=== PATIENT | female | born 1970 | race Caucasian/White ===

== ENCOUNTER 2016-12-11 06:13 | Inpatient (IN) | payer OTHER ==
[~2016-12-11] VITALS: Ht 165.1 cm; Wt 98.0 kg
[~2016-12-11 06:13] MED LIST: CYAN1KIT2 IM; FERR325C IV; SITA50TA PO
[2016-12-11] MEDS ORDERED: POVIDONE IODINE 5% (ANTISEPSIS KIT) 4 APPLICATIONS EACH NARE PRN (06:45)
[2016-12-11] MEDS ORDERED: DEXT 5%-NACL 0.9% 1000 ML INJ 1,000 ML IV SCH (06:45)
[2016-12-11] MEDS ORDERED: ceFAZolin 2 GM PREMIX 50 ML IV SCH (06:45)
[2016-12-11] MEDS ORDERED: INSULIN HUMAN REGULAR 1,000 UNITS/10 ML VIAL SQ PRN (06:45)
[2016-12-11] MEDS ORDERED: SODIUM CHLORID 0.9% 500 ML IV PRN (06:45)
[2016-12-11] MEDS ORDERED: LACTATED RINGER'S 1000 ML IV PRN (06:45)
[2016-12-11] MEDS ORDERED: METOPROLOL TARTRATE 25 MG TAB PO PRN (06:45)
[2016-12-11] MEDS ORDERED: CHLORHEXIDINE GLUCONATE 2 % 1 PACK (2 CLOTHS) TOPICAL PRN (06:45)
[2016-12-11] MEDS ORDERED: SUGAMMADEX SODIUM 200 MG/2 ML VIAL IV PUSH ONE (06:47)
[2016-12-11] MEDS ORDERED: HYDROmorphone HCL PF 2 MG/ML VIAL ONE (06:47)
[2016-12-11 07:20] LABS: AUTOMATED NEUTROPHIL # 3.5 TH/MM3 (1.8-7.7); BASOPHIL % 0.4 % (0.0-2.0); EOSINOPHIL % 0.6 % (0.0-4.0); HEMATOCRIT 40.5 % (35.0-46.0); LYMPH % 28.5 % (9.0-44.0); LYMPHOCYTE # 1.6 TH/MM3 (1.0-4.8); MEAN CELL VOLUME 78.9 FL (80.0-100.0); MEAN CORPUSCULAR HEMOGLOBIN 25.4 PG (27.0-34.0); MEAN CORPUSCULAR HGB CONC 32.2 % (32.0-36.0); MEAN PLATELET VOLUME 9.7 FL (7.0-11.0); MONO % 9.6 % (0.0-8.0); MONOCYTE # 0.5 TH/MM3 (0-0.9); NEUT % 60.9 % (16.0-70.0); PLATELET COUNT 207 TH/MM3 (150-450); RED BLOOD COUNT 5.13 MIL/MM3 (4.00-5.30); RED CELL DISTRIBUTION WIDTH 21.2 % (11.6-17.2); WHITE BLOOD COUNT 5.7 TH/MM3 (4.0-11.0)
[2016-12-11] MEDS ORDERED: ACETAMINOPHEN 1000 MG/100 ML 100 ML IV ONE (08:07)
[2016-12-11] MEDS ORDERED: NALOXONE HCL 0.4 MG/ML AMP ONE (08:10)
[2016-12-11] MEDS ORDERED: metroNIDAZOLE 500 MG INJ 100 ML IV ONE (08:29)
[2016-12-11] MEDS ORDERED: ceFAZolin INJ 1,000 MG VIAL ONE (13:17)
[2016-12-11] MEDS ORDERED: DO NOT ADM ANY ANTICOAGULANT DRUGS PRN (14:27)
[2016-12-11] MEDS ORDERED: ENALAPRILAT 1.25 MG/ML VIAL IV PUSH PRN (14:30)
[2016-12-11] MEDS ORDERED: POTASSIUM CHLOR 20 MEQ PREMIX 100 ML IV PRN (14:30)
[2016-12-11] MEDS ORDERED: ACETAMINOPHEN 325 MG TAB PO PRN (14:30)
[2016-12-11] MEDS ORDERED: POTASSIUM CHLOR 40 MEQ PREMIX 100 ML IV PRN (14:30)
[2016-12-11] MEDS ORDERED: NALOXONE HCL 0.4 MG/ML AMP IV PUSH PRN (14:30)
[2016-12-11] MEDS ORDERED: Post-op Orders (for Pharmacy) MISC XX ONE (14:30)
[2016-12-11] MEDS ORDERED: SODIUM CHLORIDE 0.9% FLUSH 5 ML FLUSH IVF PRN (14:30)
[2016-12-11] MEDS ORDERED: ACETAMINOPHEN/HYDROcodone 325 MG/5 MG TAB PO PRN (14:30)
[2016-12-11] MEDS: SODIUM CHLORIDE 0.9% FLUSH 5 ML FLUSH IVF SCH ×2 (14:30→19:32)
[2016-12-11] MEDS ORDERED: BENZOCAINE 6 MG/MENTHOL 10 MG LOZENGE BUCCAL PRN (14:30)
[2016-12-11] MEDS ORDERED: ENALAPRILAT 2.5 MG/2 ML VIAL IV PUSH PRN (14:30)
[2016-12-11] MEDS ORDERED: diphenhydrAMINE HCL 50 MG/ML VIAL IV PUSH PRN (14:30)
[2016-12-11] MEDS ORDERED: MORPHINE SULFATE 30 MG/30 ML PCA IV SCH (14:30)
[2016-12-11] MEDS: D5-NS + KCL 20 MEQ INJ 1,000 ML IV SCH ×2 (15:30→23:17)
[2016-12-11 15:39] LABS: AUTOMATED NEUTROPHIL # 12.3 TH/MM3 (1.8-7.7); BASOPHIL % 0.2 % (0.0-2.0); HEMATOCRIT 39.4 % (35.0-46.0); HEMOGLOBIN 12.6 GM/DL (11.6-15.3); LYMPHOCYTE # 0.8 TH/MM3 (1.0-4.8); MEAN CELL VOLUME 79.2 FL (80.0-100.0); MEAN CORPUSCULAR HEMOGLOBIN 25.4 PG (27.0-34.0); MEAN CORPUSCULAR HGB CONC 32.1 % (32.0-36.0); MEAN PLATELET VOLUME 9.7 FL (7.0-11.0); MONO % 1.9 % (0.0-8.0); MONOCYTE # 0.3 TH/MM3 (0-0.9); NEUT % 91.9 % (16.0-70.0); PLATELET COUNT 197 TH/MM3 (150-450); RED BLOOD COUNT 4.97 MIL/MM3 (4.00-5.30); WHITE BLOOD COUNT 13.4 TH/MM3 (4.0-11.0)
[2016-12-11 16:02] LABS: BICARBONATE 20.9 MEQ/L (21.0-32.0); CALCIUM 8.8 MG/DL (8.5-10.1); CREATININE 1.08 MG/DL (0.50-1.00)
[2016-12-11] MEDS: KETOROLAC TROMETHAMINE 30 MG/ML (IVP) VIAL IVP SCH ×2 (16:24→23:17)
[2016-12-11] MEDS ORDERED: *morphine SULFATE 8 MG/ML PERIprocedure ONLY ONE (16:58)
[2016-12-11] MEDS: metroNIDAZOLE 500 MG INJ 100 ML IV SCH (17:15)
[2016-12-11] MEDS: ONDANSETRON HCL 4 MG/2 ML VIAL IV PUSH PRN (19:38)
[2016-12-11 21:00] VITALS: PULSE 88
[2016-12-11] MEDS ORDERED: HEPARIN SODIUM - SQ 10,000 UNITS/ML VIAL SQ SCH (21:00)
--- NOTE | 2016-12-11 21:07 | MP ---
cc: BUCK GIBSON M.D. DATE OF SURGERY 12/11/16 PREOPERATIVE DIAGNOSIS Ascending colon polyp. POSTOPERATIVE DIAGNOSIS Ascending colon polyp. PROCEDURE 1. Robotic extensive lysis of adhesions. 2. Robotic ascending colectomy. SURGEON Jhonathan Gibson MD [employer] Reinaldo ANESTHESIA General per ET tube ESTIMATED BLOOD LOSS 100 mL OPERATIVE INDICATIONS The patient is a 46-year-old female who on recent colonoscopy was noted to have a large polyp in the ascending colon which was not able to be removed via the colonoscope. OPERATIVE FINDINGS The patient had no visible abnormalities noted within the liver. The gallbladder was absent. The tattooing of the polyp were found just at the level of the hepatic flexure. The uterus was somewhat enlarged but smooth and symmetric looking. The left ovary was not visualized. The right ovary was and it appeared normal. PROCEDURE IN DETAIL The patient was brought to the operating room and placed in the supine position. The bed was broken slightly. The skin of the anterior abdominal wall was then prepped and draped in usual sterile fashion. Site was then chosen for the camera port being located just to the left and below the umbilicus. A 10-12 port was placed at that location under direct vision using a laparoscope. CO2 insufflation was then undertaken and a brief abdominal survey was then performed with nothing noted that would preclude the robotic approach. The patient was then hydroplaned just slightly head down and to the left and the small bowel. The remainder of the ports were then placed as follows: the #1 port was placed in the left mid clavicular line just under the left costal margin and the #5 assist port was placed in the left lower quadrant equal distance between the #1 port and the camera port. The #2 port was placed just to the right of the suprapubic area and the #3 10-12 port was placed just inside the right anterior iliac spine. The small bowel was then brought up and out of the pelvis and lay fairly well in the upper abdomen. Robot was then docked. The terminal ileum and cecum were then retracted anteriorly and the peritoneum was scored. Dissection was continued in the posterior plane freeing the ascending colon from the posterior peritoneum using electrocautery dissection. This dissection was carried out to the level of the C sweep of the duodenum which was carefully dissected free from the undersurface of the transverse mesocolon. Dissection continued in this plane until the C sweep of the duodenum and the pancreas were dissected free from the undersurface of the transverse mesocolon and dissection continued laterally to as far as we could get to get good retraction. The colon was then reversed back into its more normal orientation and the cecum and terminal ileum were retracted down and to the right thus putting the ileocolic vessels on stretch. A window was made posterior to these and the vessels were then dissected out circumferentially. The vein was approached first. It was doubly clamped proximally, singly clamped distally using hemolock clamps and divided. The artery was then divided in the same fashion. The omentum was then pulled away from the transverse colon and, using electrocautery, dissection was carried in this plane until the lesser sac was entered. The omentum was freed of the colon from almost the splenic flexure to about midway between the midline and the hepatic flexure. At that point, I elected take that amount of the omentum with as it could conceivably be cancer. The transverse colon was then retracted anteriorly and a site was chosen for a window just to the right of the middle colic vessels. This was opened using electrocautery and the mesentery at this level was divided using the vessel sealer. The lateral peritoneal attachments of the ascending colon were then dissected free using electrocautery and continued up and around the hepatic flexure. The remaining mesentery to the hepatic flexure and descending colon was then divided using the vessel sealer. A site was then chosen for division of the transverse colon just to the right of the middle colic vessels and this was cleared circumferentially. A site was also chosen for division of the small bowel where it came up nicely and lay in a nice orientation for anastomosis. This was approximately 12 cm proximal to the ileocecal valve. The mesentery at this level was divided using the vessel sealer. The small bowel was then aligned against the transverse colon for reanastomosis and three simple stay sutures were placed using 2-0 silk suture, one posterior, one anterior at the site of the anastomosis and one approximately 6 cm distally. An enterotomy was made in the small bowel and the colon just proximal to the sutures and the echelon endostapler was brought onto the field. This was placed with one limb of the stapler going down each limb of the bowel. This was closed along the antimesenteric border, held for 30 seconds, fired and removed. The anastomosis appeared pink and healthy. The reload of the stapler was then brought onto the field, placed transversely proximal to the main part of the anastomosis but distal to the previous enterotomies. This was closed, held for 30 seconds, fired and removed. The third load of the stapler was necessary to transect the remaining colon. The specimen was then placed into an EndoCatch bag. Hemostasis was obtained with electrocautery. The Evoseal product was then gently sprayed across the anastomosis and the anastomosis was wrapped in omentum. The peritoneal cavity was irrigated with warm normal saline and the robot was undocked. An 8-10 cm incision was made in the suprapubic area. Using electrocautery dissection, it was carried down to the fascia of the anterior abdominal wall which was split the length of skin incision. The medial fibers of the rectus abdominis muscle were then split and we were low as there not much peritoneum. There was not any posterior fascia, but the peritoneum was then opened using electrocautery as well. The specimen was then removed from the peritoneal cavity within the EndoCatch bag and taken to a back table where it was opened and a polyp was confirmed. The posterior fascia at the suprapubic site was closed in a running fashion using #1 PDS and the anterior fascia was closed in a running fashion using #1 PDS. The suprapubic incision was then copiously irrigated with warm normal saline and the skin was closed in a running subcuticular fashion using 3-0 Vicryl. The CO2 insufflation was resumed and no sign of any significant bleeding was noted. The 10-12 trocar sites at the umbilicus and the right lower quadrant were then closed using the crossbow device and 0 PDS suture. The trocar site wounds were then copiously irrigated with warm normal saline and closed in an interrupted septic fashion using 3-0 Vicryl. Sterile dressing was then applied. All sponge, needle and instrument counts were correct and the patient was returned to the Post Anesthesia Care Unit in stable condition. MD RIGOBERTO Day/ /2:17 PM /8:38 PM
[2016-12-11 21:24] VITALS: BP 104/63; PULSE 88; RESP 18; TEMP 98.7; O2SAT 98
[2016-12-11 22:00] VITALS: PULSE 84
[2016-12-11 23:00] VITALS: PULSE 88
[2016-12-11 23:07] VITALS: BP 106/58; PULSE 92; RESP 18; TEMP 97.9; O2SAT 93
[2016-12-12] VITALS (22 sets, daily range): BP systolic 89–127; BP diastolic 51–77; PULSE 67–86; RESP 16–19; TEMP 97.5–98.8; O2SAT 93–100
[2016-12-12] MEDS: metroNIDAZOLE 500 MG INJ 100 ML IV SCH ×2 (00:17→09:15)
[2016-12-12] MEDS: KETOROLAC TROMETHAMINE 30 MG/ML (IVP) VIAL IVP SCH ×4 (04:28→23:06)
[2016-12-12] MEDS: PCA - TOTAL MG MORPHINE DELIVERED PER SHIFT SCH ×3 (04:31→22:00)
[2016-12-12 04:55] LABS: AUTOMATED NEUTROPHIL # 7.9 TH/MM3 (1.8-7.7); HEMATOCRIT 34.6 % (35.0-46.0); HEMOGLOBIN 11.2 GM/DL (11.6-15.3); LYMPH % 5.8 % (9.0-44.0); LYMPHOCYTE # 0.5 TH/MM3 (1.0-4.8); MEAN CELL VOLUME 79.3 FL (80.0-100.0); MEAN CORPUSCULAR HEMOGLOBIN 25.6 PG (27.0-34.0); MEAN CORPUSCULAR HGB CONC 32.3 % (32.0-36.0); MEAN PLATELET VOLUME 9.5 FL (7.0-11.0); MONOCYTE # 0.5 TH/MM3 (0-0.9); NEUT % 88.2 % (16.0-70.0); PLATELET COUNT 180 TH/MM3 (150-450); RED BLOOD COUNT 4.36 MIL/MM3 (4.00-5.30); WHITE BLOOD COUNT 8.9 TH/MM3 (4.0-11.0)
[2016-12-12 05:26] LABS: BICARBONATE 20.5 MEQ/L (21.0-32.0); CALCIUM 8.9 MG/DL (8.5-10.1); CREATININE 0.69 MG/DL (0.50-1.00)
[2016-12-12] MEDS: D5-NS + KCL 20 MEQ INJ 1,000 ML IV SCH ×3 (07:05→18:04)
[2016-12-12] MEDS: SODIUM CHLORIDE 0.9% FLUSH 5 ML FLUSH IVF SCH ×2 (09:00→21:00)
[2016-12-12] MEDS: PANTOPRAZOLE SODIUM 40 MG VIAL IVP SCH (09:17)
--- NOTE | 2016-12-12 13:27 | HHI.PR ---
Subjective Remarks POD#1 s/p robotic ascending colectomy sore, no nausea Objective Vital Signs Date Time Temp Pulse Resp B/P (MAP) Pulse Ox O2 Delivery O2 Flow Rate FiO2 12/12/16 13:00 78 12/12/16 12:09 18 12/12/16 12:00 77 12/12/16 11:00 98.1 76 19 115/63 (80) 99 12/12/16 11:00 74 12/12/16 10:00 76 12/12/16 09:00 71 12/12/16 08:00 71 12/12/16 07:15 82 12/12/16 07:00 98.4 75 17 89/51 (64) 97 12/12/16 07:00 97 Nasal Cannula 2.00 12/12/16 06:13 74 12/12/16 05:44 95 12/12/16 05:04 71 12/12/16 04:31 18 12/12/16 04:04 82 12/12/16 03:29 98.8 83 18 95/56 (69) 95 12/12/16 03:00 82 12/12/16 02:04 80 12/12/16 01:01 83 12/12/16 00:27 82 12/11/16 23:07 97.9 92 18 106/58 (74) 93 12/11/16 23:00 88 12/11/16 22:00 84 12/11/16 21:24 98.7 88 18 104/63 (77) 98 12/11/16 21:17 18 12/11/16 21:00 88 12/11/16 20:00 91 21 112/69 (83) 94 Nasal Cannula 2 12/11/16 19:00 98.8 90 17 109/58 (75) 99 Nasal Cannula 2 12/11/16 18:09 89 18 111/56 (74) 97 Nasal Cannula 2 12/11/16 17:30 Nasal Cannula 2 12/11/16 17:00 96 17 120/65 (83) 98 Nasal Cannula 2 12/11/16 16:30 96 17 118/60 (79) 100 Nasal Cannula 2 12/11/16 16:21 16 12/11/16 16:15 97 17 119/60 (79) 100 Nasal Cannula 2 12/11/16 16:00 97 17 120/62 (81) 100 Nasal Cannula 2 12/11/16 15:45 95 17 121/61 (81) 99 Nasal Cannula 3 12/11/16 15:30 92 18 117/61 (79) 98 Nasal Cannula 3 12/11/16 15:15 93 16 121/58 (79) 98 Nasal Cannula 3 12/11/16 15:00 97 14 123/62 (82) 95 Nasal Cannula 3 12/11/16 14:45 88 14 115/61 (79) 95 Nasal Cannula 3 12/11/16 14:35 98.5 94 16 121/66 (84) 96 Nasal Cannula 4 I/O 12/11/16 12/11/16 12/11/16 12/12/16 12/12/16 12/12/16 07:00 15:00 23:00 07:00 15:00 23:00 Intake Total 2300 ml 1100 ml 1288 ml 200 ml Output Total 320 ml 445 ml 1150 ml Balance 1980 ml 655 ml 138 ml 200 ml Intake Oral 360 ml IV Total 1100 ml 928 ml 200 ml Other 2300 ml Output Urine Total 300 ml 445 ml 1150 ml Estimated Blood Loss 20 ml Result Diagram: 12/12/16 0358 12/12/16 0358 Objective Remarks Abdomen soft, nondistended, tender Dressings c/d/i Assessment and Plan Assessment and Plan Doing well d/c kaba Advance diet decrease IV Mobilize Tracy Gibson MD Dec 12, 2016 13:27
[2016-12-12] MEDS: HEPARIN SODIUM - SQ 10,000 UNITS/ML VIAL SQ SCH (14:50)
[2016-12-13] VITALS (8 sets, daily range): BP systolic 114–131; BP diastolic 60–82; PULSE 69–87; RESP 16–18; TEMP 95.9–98.6; O2SAT 93–97
[2016-12-13] MEDS: HEPARIN SODIUM - SQ 10,000 UNITS/ML VIAL SQ SCH ×2 (02:10→15:59)
[2016-12-13] MEDS: D5-NS + KCL 20 MEQ INJ 1,000 ML IV SCH ×2 (02:11→22:50)
[2016-12-13] MEDS: ONDANSETRON HCL 4 MG/2 ML VIAL IV PUSH PRN (03:37)
[2016-12-13] MEDS: KETOROLAC TROMETHAMINE 30 MG/ML (IVP) VIAL IVP SCH ×4 (05:10→22:51)
[2016-12-13] MEDS: PCA - TOTAL MG MORPHINE DELIVERED PER SHIFT SCH (06:00)
[2016-12-13 06:34] LABS: BASOPHIL % 0.3 % (0.0-2.0); EOSINOPHIL % 0.2 % (0.0-4.0); HEMATOCRIT 35.1 % (35.0-46.0); HEMOGLOBIN 11.2 GM/DL (11.6-15.3); LYMPH % 14.4 % (9.0-44.0); LYMPHOCYTE # 1.3 TH/MM3 (1.0-4.8); MEAN CELL VOLUME 80.2 FL (80.0-100.0); MEAN CORPUSCULAR HEMOGLOBIN 25.5 PG (27.0-34.0); MEAN CORPUSCULAR HGB CONC 31.8 % (32.0-36.0); MEAN PLATELET VOLUME 9.3 FL (7.0-11.0); MONO % 5.6 % (0.0-8.0); MONOCYTE # 0.5 TH/MM3 (0-0.9); NEUT % 79.5 % (16.0-70.0); PLATELET COUNT 172 TH/MM3 (150-450); RED BLOOD COUNT 4.38 MIL/MM3 (4.00-5.30); RED CELL DISTRIBUTION WIDTH 20.8 % (11.6-17.2); WHITE BLOOD COUNT 8.7 TH/MM3 (4.0-11.0)
[2016-12-13 07:04] LABS: BICARBONATE 20.4 MEQ/L (21.0-32.0); CALCIUM 8.5 MG/DL (8.5-10.1); CREATININE 0.69 MG/DL (0.50-1.00)
[2016-12-13] MEDS: SODIUM CHLORIDE 0.9% FLUSH 5 ML FLUSH IVF SCH ×2 (09:00→19:37)
[2016-12-13] MEDS: PANTOPRAZOLE SODIUM 40 MG VIAL IVP SCH (09:34)
--- NOTE | 2016-12-13 11:33 | HHI.PR ---
Subjective Remarks POD#2 s/p robotic ascending colectomy reports pain, frequent loose stools with urgency Objective Vital Signs Date Time Temp Pulse Resp B/P (MAP) Pulse Ox O2 Delivery O2 Flow Rate FiO2 12/13/16 08:00 97.1 84 16 123/66 (85) 93 12/13/16 06:00 18 12/13/16 04:02 95.9 87 17 131/82 (98) 97 12/13/16 00:23 96 12/13/16 00:06 18 12/12/16 23:25 98.1 86 16 127/71 (89) 98 12/12/16 22:00 18 12/12/16 20:00 97.9 67 17 119/61 (80) 97 12/12/16 17:00 97.5 79 17 111/77 (88) 100 12/12/16 14:00 20 12/12/16 13:00 78 12/12/16 12:00 77 12/12/16 11:56 99 Nasal Cannula 2.00 I/O 12/12/16 12/12/16 12/12/16 12/13/16 12/13/16 12/13/16 07:00 15:00 23:00 07:00 15:00 23:00 Intake Total 1288 ml 1725 ml 1280 ml Output Total 1150 ml 1250 ml 400 ml 1000 ml Balance 138 ml 475 ml -400 ml 280 ml Intake Oral 360 ml 625 ml 280 ml IV Total 928 ml 1100 ml 1000 ml Output Urine Total 1150 ml 1250 ml 400 ml 1000 ml # Bowel Movements 0 1 Result Diagram: 12/13/1612 12/13/16 0612 Objective Remarks Abdomen soft, nondistended, tender wounds clean Assessment and Plan Assessment and Plan Doing well Advance diet decrease IV Mobilize Tracy Gibson MD Dec 13, 2016 11:33
[2016-12-13] MEDS: ACETAMINOPHEN/HYDROcodone 325 MG/5 MG TAB PO PRN (19:40)
[2016-12-14] MEDS: HEPARIN SODIUM - SQ 10,000 UNITS/ML VIAL SQ SCH ×2 (02:13→13:55)
[2016-12-14] MEDS: ACETAMINOPHEN/HYDROcodone 325 MG/5 MG TAB PO PRN ×3 (04:13→18:22)
[2016-12-14] MEDS: KETOROLAC TROMETHAMINE 30 MG/ML (IVP) VIAL IVP SCH ×2 (05:00→12:09)
[2016-12-14 06:55] LABS: BASOPHIL % 0.3 % (0.0-2.0); EOSINOPHIL # 0.2 TH/MM3 (0-0.4); EOSINOPHIL % 2.9 % (0.0-4.0); HEMATOCRIT 32.5 % (35.0-46.0); HEMOGLOBIN 10.5 GM/DL (11.6-15.3); LYMPH % 27.7 % (9.0-44.0); LYMPHOCYTE # 1.8 TH/MM3 (1.0-4.8); MEAN CELL VOLUME 79.9 FL (80.0-100.0); MEAN CORPUSCULAR HEMOGLOBIN 25.8 PG (27.0-34.0); MEAN CORPUSCULAR HGB CONC 32.2 % (32.0-36.0); MEAN PLATELET VOLUME 9.7 FL (7.0-11.0); MONO % 8.3 % (0.0-8.0); MONOCYTE # 0.5 TH/MM3 (0-0.9); NEUT % 60.8 % (16.0-70.0); PLATELET COUNT 151 TH/MM3 (150-450); RED BLOOD COUNT 4.07 MIL/MM3 (4.00-5.30); RED CELL DISTRIBUTION WIDTH 21.1 % (11.6-17.2); WHITE BLOOD COUNT 6.5 TH/MM3 (4.0-11.0)
[2016-12-14 07:18] LABS: BICARBONATE 21.9 MEQ/L (21.0-32.0); CALCIUM 8.9 MG/DL (8.5-10.1); CREATININE 0.62 MG/DL (0.50-1.00)
[2016-12-14 08:00] VITALS: BP 96/56; PULSE 63; RESP 17; TEMP 97.6; O2SAT 97
[2016-12-14] MEDS: PANTOPRAZOLE SODIUM 40 MG VIAL IVP SCH (08:27)
[2016-12-14] MEDS: SODIUM CHLORIDE 0.9% FLUSH 5 ML FLUSH IVF SCH ×2 (08:27→23:22)
[2016-12-14 08:28] LABS: OVALOCYTES 1+ (NORMAL)
[2016-12-14 12:00] VITALS: BP 134/82; PULSE 73; RESP 18; TEMP 96.6; O2SAT 100
--- NOTE | 2016-12-14 15:28 | HHI.PR ---
Subjective Remarks POD#3 s/p robotic ascending colectomy bloated, no stool today Objective Vital Signs Date Time Temp Pulse Resp B/P (MAP) Pulse Ox O2 Delivery O2 Flow Rate FiO2 12/14/16 12:00 96.6 73 18 134/82 (99) 100 12/14/16 08:00 97.6 63 17 96/56 (69) 97 12/14/16 05:13 18 12/13/16 23:51 18 12/13/16 23:48 96.6 69 18 128/71 (90) 97 12/13/16 20:26 97.6 71 18 114/60 (78) 97 12/13/16 20:19 21 12/13/16 16:00 98.6 82 16 124/73 (90) 95 I/O 12/13/16 12/13/16 12/13/16 12/14/16 12/14/16 12/14/16 07:00 15:00 23:00 07:00 15:00 23:00 Intake Total 1280 ml 1000 ml 760 ml Output Total 1000 ml 1200 ml Balance 280 ml 1000 ml -440 ml Intake Oral 280 ml 760 ml IV Total 1000 ml 1000 ml Output Urine Total 1000 ml 1200 ml # Bowel Movements 1 Result Diagram: 12/14/16 0603 12/14/16 0603 Objective Remarks Abdomen soft, nondistended, tender wounds clean Assessment and Plan Assessment and Plan Home soon Tracy Gibson MD Dec 14, 2016 15:28
[2016-12-14 15:50] VITALS: BP 107/60; PULSE 68; RESP 17; TEMP 97.8; O2SAT 99
[2016-12-14 20:00] VITALS: BP 110/55; PULSE 74; RESP 18; TEMP 98.1; O2SAT 98
[2016-12-15] VITALS: BP 113/56; PULSE 66; RESP 18; TEMP 97.6; O2SAT 97
[2016-12-15] MEDS: ACETAMINOPHEN/HYDROcodone 325 MG/5 MG TAB PO PRN ×2 (00:36→06:52)
[2016-12-15] MEDS: HEPARIN SODIUM - SQ 10,000 UNITS/ML VIAL SQ SCH (02:07)
[2016-12-15 08:00] VITALS: BP 105/61; PULSE 66; RESP 18; TEMP 97.9; O2SAT 96
[2016-12-15] MEDS: PANTOPRAZOLE SODIUM 40 MG VIAL IVP SCH (08:13)
[2016-12-15] MEDS: SODIUM CHLORIDE 0.9% FLUSH 5 ML FLUSH IVF SCH (08:13)
--- NOTE | 2016-12-15 09:22 | HHI.PR ---
Subjective Remarks POD#4 s/p robotic ascending colectomy bm last pm, feels better Objective Vital Signs Date Time Temp Pulse Resp B/P (MAP) Pulse Ox O2 Delivery O2 Flow Rate FiO2 12/15/16 08:00 97.9 66 18 105/61 (76) 96 12/15/16 00:00 97.6 66 18 113/56 (75) 97 12/14/16 20:35 21 12/14/16 20:00 98.1 74 18 110/55 (73) 98 12/14/16 15:50 97.8 68 17 107/60 (76) 99 12/14/16 12:00 96.6 73 18 134/82 (99) 100 I/O 12/14/16 12/14/16 12/14/16 12/15/16 12/15/16 12/15/16 07:00 15:00 23:00 07:00 15:00 23:00 Intake Total 760 ml 1470 ml Output Total 1200 ml Balance -440 ml 1470 ml Intake Oral 760 ml 620 ml IV Total 850 ml Output Urine Total 1200 ml # Voids 5 2 # Bowel Movements 1 1 Result Diagram: 12/14/16 0603 12/14/16 0603 Objective Remarks Abdomen soft, nondistended, tender wounds clean Assessment and Plan Assessment and Plan Home today Followup 3 weeks Tracy Gibson MD Dec 15, 2016 09:22
[2016-12-15] MEDS ORDERED: HYDR-3516 PO (09:25)
--- NOTE | 2016-12-15 13:34 | MD ---
cc: BUCK WEAVER M.D. ADMISSION DATE: 12/11/2016 DISCHARGE DATE: 12/15/2016 ADMISSION DIAGNOSIS 1. Diabetes mellitus. 2. The ascending colon polyp. DISCHARGE DIAGNOSIS 3. Diabetes mellitus. 4. The ascending colon polyp. PROCEDURE: Robotic extensive lysis of adhesions with robotic descending colectomy. HOSPITAL COURSE The patient is a 46-year-old female who was recently noted have a large polyp in a single which was unable to be removed via the colonoscope. She was admitted to the hospital on December 11 after an outpatient bowel prep. She has been to the operating room where she underwent the above-named procedures. Postoperatively she did well with rapid return of bowel and bladder function. She was discharged to home on postop day #4 instructions follow-up myself in the office. FINAL PATHOLOGY Final pathology was not available at the time of discharge. MD RIGOBERTO Day/sheree /9:24 AM /1:19 PM
== END 2016-12-15 10:33 | disposition home or self-care (01) | DRG 331 ==
LOC: HSDI 06:13 → HCPC 20:37 → N07B 12-12 15:07
PROVIDERS: ADMIT Colon & Rectal Surgery; ATTEND Colon & Rectal Surgery
PROC: 0DNE4ZZ Release Large Intestine, Percutaneous Endoscopic Approach (ICD-10-PCS; 2016-12-11)
PROC: 0DBU4ZZ Excision of Omentum, Percutaneous Endoscopic Approach (ICD-10-PCS; 2016-12-11)
PROC: 8E0W4CZ Robotic Assisted Procedure of Trunk Region, Percutaneous Endoscopic Approach (ICD-10-PCS; 2016-12-11)
PROC: 0DTK0ZZ Resection of Ascending Colon, Open Approach (ICD-10-PCS; principal; 2016-12-11 08:52)
DX: D12.2 Benign neoplasm of ascending colon (principal); E11.9 Type 2 diabetes mellitus without complications; Z79.84 Long term (current) use of oral hypoglycemic drugs
CPT/HCPCS: 80048; 85025; 86850; 86900; 86901; 88307; 88309; 94150; C9113; J0131; J0690; J1170; J1644; J1885; J2270; J2310; J2405; J3480; J7120